=== PATIENT | male | born 1950 ===

== ENCOUNTER 2017-03-11 07:46 | Day surgery (SDC) | payer MEDICARE ==
[2017-03-11 08:47] VITALS: BMI 29.8
[2017-03-11] MEDS ORDERED: Propofol 10 mg/ml Inj (20 ML) ONE (10:00)
[2017-03-11 10:43] VITALS: TEMP 97.8
[2017-03-11 11:15] VITALS: BP 121/58; PULSE 51; RESP 12; O2SAT 98
== END 2017-03-11 12:00 | disposition home or self-care (01) ==
LOC: C.ENDO 07:46
PROVIDERS: ATTEND Internal Medicine Gastroenterology
DX: Z12.11 Encounter for screening for malignant neoplasm of colon (principal); D12.3 Benign neoplasm of transverse colon; K57.30 Diverticulosis of large intestine without perforation or abscess without bleeding; K64.1 Second degree hemorrhoids; Z87.891 Personal history of nicotine dependence
CPT/HCPCS: 45380; 45385; 88305; J2704